=== PATIENT | male | born 1935 | race Caucasian/White ===

== ENCOUNTER → 2016-12-19 | Outpatient (CLI) | payer MEDICARE ==
[~2016-12-19] MED LIST: ACTOS15 MG PO; JANUMET 50-1,01 EACH; LIPITOR20 MG PO; METOPROLOL SUCC50 MG PO; OLMSRTN-AMLDPN1 EAC4; SYNTHROID0.05 MG DOB
--- NOTE | ~2016-12-19 | EKG ---
PATIENT: DIANA AVILES UNIT #: [id number] Ventricular Rate: 54 BPM Atrial Rate: 54 BPM P-R Interval: 184 ms QRS Duration: 82 ms Q-T Interval: 424 ms QTC Calculation(Bezet): 402 ms P [place]: 86 degrees Calculated R [place]: -4 degrees Calculated T [place]: 9 degrees Diagnosis Line: Sinus bradycardia Diagnosis Line: Otherwise normal ECG Diagnosis Line: No previous ECGs available Diagnosis Line: Confirmed by CELI BARNETT MD ([id number]) on Diagnosis Line: 12/19/2016 9:35:45 PM INTERPRETING MD: THOMAS
[2016-12-19 09:58] LABS: HEMATOCRIT 39.6 % (38.0-50.0); HEMOGLOBIN 13.2 gm/dL (13.0-16.0); MEAN CELL VOLUME 83.7 FL (83-96); MEAN CORPUSCULAR HEMOGLOBIN 27.9 PG (28-34); MEAN CORPUSCULAR HGB CONC 33.4 g/dL (30-36); MEAN PLATELET VOLUME 8.7 FL (6.5-11.5); RED BLOOD COUNT 4.73 X10e (3.90-5.60); RED CELL DISTRIBUTION WIDTH 15.3 % (11.0-15.5); WHITE BLOOD COUNT 5.1 X10e3 (4.0-10.5)
[2016-12-19 10:33] LABS: CALCIUM SERUM 9.4 mg/dL (8.4-10.2); CREATININE SERUM 1.2 mg/dL (0.6-1.4); GLOM FILT RATE Estimated 56.4 mL/min (>60); POTASSIUM 4.7 mmol/L (3.5-5.1)
== END | disposition home or self-care (01) ==
LOC: CAMB 07:36
PROVIDERS: Specialist
DX: Z01.818 Encounter for other preprocedural examination (principal); L72.3 Sebaceous cyst
CPT/HCPCS: 36415; 80048; 85027; 93005

== ENCOUNTER → 2016-12-24 | Day surgery (SDC) | payer MEDICARE ==
--- NOTE | ~2016-12-24 | OR ---
Unit #: [id number] #: [id number] Patient: DIANA AVILES [id number] [facility] [address] [place], [place] [address] [id number] O MR#: [id number] NAME: DIANA AVILES ROOM: Date of Procedure: 12/24/2016 Admission Date: 12/24/2016 Surgeon: Ernesto Rider M.D. : 1935 Attending Physician: Ernesto Rider M.D. Referring Physician: Ernesto Rider M.D. Primary Care Physician: Fitz Eugene M.D. 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 ANESTHESIA Monitored anesthesia, local anesthetic. ESTIMATED BLOOD LOSS 30 mL. INDICATIONS FOR PROCEDURE Mr. Aviles is an 81-year-old gentleman, who has had multiple infections of this neck cyst, sometimes spontaneously drained and other times, they have been drained. He initially presented in the office with an acutely inflamed draining cyst in the office as able to evacuate the gross purulent drainage and much of the sebum through open central pore. He was then put on antibiotics and he is brought in today for an excision of a chronic recurrent cyst. DESCRIPTION OF PROCEDURE The patient was admitted to [facility], positively identified, and transported to the operating room. 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 The area in question was prepped and draped in usual sterile fashion. Local anesthetic of 1% plain lidocaine was infiltrated using a 30-gauge needle. Once we had a field block, a wedge excision around the lesion was made. We dissected down through the skin and soft tissue excising the lesion and went down to the level of the sternocleidomastoid muscle. It was laying right on top of the structure that appeared to be a sensory nerve and so we dissected off the nerve and the nerve was left intact. However, infiltration with local anesthetic, he may have some postop nerve dysfunction until the local anesthetic resolved. I was able to remove the rest the lesion, irrigated and obtained hemostasis. The deep tissues were reapproximated using 3-0 Vicryl interrupted suture. The skin was reapproximated using 4-0 nylon running suture. Neosporin was placed as a topical dressing. The patient Unit #: [id number] #: [id number] Patient: DIANA AVILES tolerated the procedure well and transported to recovery in stable condition. Findings and postoperative instructions were discussed with his family. Dictated by... David Chun/katty TD: 12/24/2016 10:26 JOB #: [id number] OPERATIVE REPORT Page 1 of 1 X Ernesto Rider MD X PROCEDURE OPERATIVE NOTE
== END | disposition home or self-care (01) ==
LOC: CSUR 06:22
DX: L57.0 Actinic keratosis (principal); L72.0 Epidermal cyst; E03.9 Hypothyroidism, unspecified; N40.0 Benign prostatic hyperplasia without lower urinary tract symptoms; I10 Essential (primary) hypertension; E78.5 Hyperlipidemia, unspecified; E11.9 Type 2 diabetes mellitus without complications; E78.00 Pure hypercholesterolemia, unspecified; Z79.899 Other long term (current) drug therapy; Z87.442 Personal history of urinary calculi
CPT/HCPCS: 82947; 88304; J2250; J3010; J3370